=== PATIENT | male | born 1960 | race Caucasian/White ===

== ENCOUNTER 2024-03-12 08:01 | Emergency (ER) | payer BC, SELFPAY ==
[2024-03-12 08:11] VITALS: BP 190/113
[2024-03-12 08:12] VITALS: BP 175/106
[2024-03-12 08:15] VITALS: BP 175/106
[2024-03-12 08:18] VITALS: BMI 30.3
[2024-03-12] MEDS: DECADRON 10 MG IV (08:52)
[2024-03-12] MEDS: NORCO 5/325 2 TABLET PO (08:52)
[2024-03-12 08:59] VITALS: BP 172/108
[2024-03-12 09:00] VITALS: BP 172/108
--- NOTE | 2024-03-12 09:14 | ED.GENMED ---
History of Present Illness
General
Chief Complaint: Back Pain
Source: patient and family
Time Seen by Provider: 03/12/24 08:10
History of Present Illness
History of Present Illness:
63-year-old male with no previous past medical history he does admit that he does not really see his doctor often presents with pain down his right leg. The patient states that he has had this off and on for many years. He has had over the weekend
but today was much worse. He states he could not bend over to put his socks on. 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 He denies numbness or tingling. He denies motor weakness. He denies bladder or bowel dysfunction. He denies
fevers. He denies any specific injury.
Past History
Past History
ED Past Medical History: None
ED Past Surgical History: Orthopedic
Social History
Tobacco: Non-smoker
Alcohol: Daily
Phy Exam
Physical Exam
Physical Exam:
CONSTITUTIONAL Vital signs reviewed, Patient alert and oriented to person, place and time. Well-appearing
HEAD atraumatic, normocephalic.
EYES eyelids normal to inspection, Extraocular muscles intact, Conjunctiva normal, Sclera normal.
NECK normal range of motion, Trachea midline, no jugular venous distention.
RESP no respiratory distress
BACK No obvious deformities
UPPER EXTREMITY Gross Range of motion normal, gross motor strength normal
LOWER EXTREMITY Gross range of motion normal, Gross motor strength normal. Normal distal pulses bilaterally. Positive straight leg raise on the right at about 45 degrees
NEURO Speech normal, No focal motor deficits include, [place] coma scale 15, Memory normal, Cranial Nerves intact to screening exam.
SKIN Skin warm, dry, and normal in color.
PSYCHIATRIC Patient oriented to person place and time, Normal affect.
Course
Orders/Labs/Results
Orders:
Orders
03/12/24 08:35
Dexamethasone Sod Phosphate [Decadron] 10 mg IV NOW STA
Hydrocodone 5/APAP 325 [[place] 5/325] 2 tablet PO NOW STA
03/12/24 08:55
Vital Signs- Treatment ONCE
Frequency: Once
Vital Signs
Initial and Last Documented VS:
Initial Vital Signs
BP Pulse Ox
190/113 99
03/12/24 08:11 03/12/24 08:11
Last Documented Vital Signs
Temp Pulse Resp BP Pulse Ox
98.0 F 68 18 172/108 97
03/12/24 08:59 03/12/24 08:59 03/12/24 08:59 03/12/24 09:00 03/12/24 09:00
MDM/Problems Addressed
MDM/Problems Addressed:
Lumbar radiculopathy, acute uncontrolled hypertension
*Pulse Oximetry
Patient hypoxic: no
*Critical Care Note
Total Time (30-74mins, 75-104mins- exclusive of procedures): Not Applicable
Data Reviewed
Source: patient and family (Patient's son)
Prescriptions/Medications Considered But Not Given:
Considered antihypertensives but patient is in pain and hypertension possibly related
Patient Management
Escalation/DeEscalation of care consider admission/obs:
Patient appears well. No evidence of cauda equina syndrome. Suspect lumbar radiculopathy. Will trial steroids, pain control and outpatient follow-up with spine. Also counseled importance for blood pressure control and importance of follow-up to
repeat his blood pressure.
ED Attending Note
-
Portions of this chart may have been created with voice recognition software.� Occasional wrong word or��sound alike� substitutions may have occurred due to the inherent limitations of voice recognition software.
Discharge Plan
Departure
Patient Disposition: Home (Routine Discharge)
Date of Disposition: 03/12/24
Time of Disposition: 09:46
Patient with high blood pressure during this ER visit?: Yes
Discharge Problem:
Acute lumbar radiculopathy, Uncontrolled hypertension
Instructions: Sciatica (DC), Radiculopathy (DC), BLOOD PRESSURE
Prescriptions:
New
prednisone 10 mg Tablet
See Rx Instructions .ROUTE .COMPLEX Qty: 45 0RF
Rx Instructions:
Take By Mouth:
50 mg daily x3 days, 40 mg daily x3 days,
30 mg daily x3 days, 20 mg daily x3 days,
10 mg daily x3 days
hydrocodone-acetaminophen 5-325 mg tablet
2 tab PO Q6H PRN (Reason: Pain) Qty: 15 0RF
Referrals:
Ja Silver MD [Active] -
Baljeet Long MD [Family Provider] -
Activity Restrictions/Additional Instructions:
Please see your doctor in the next 3 days for follow-up and re-evaluation.
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 Further workup should include an MRI. Return immediately for numbness, motor weakness, bowel or bladder incontinence or any other concerns
Your blood pressure was elevated while in the Emergency Department, please have your doctor re-evaluate it in the next 48 hours as untreated hypertension may lead to serious complications.
Interventions
Interventions:
*Risk Screen - Suicide Last Done: 03/12/24 08:32
*General Assessment Last Done: 03/12/24 08:31
*ED COVID-19 Vaccine History Last Done: 03/12/24 08:30
ED-Musculoskeletal Assessment Last Done: 03/12/24 09:02
Discharge Date and Time
Print Language: ARABIC
[2024-03-12 10:30] VITALS: BP 172/108
== END 2024-03-12 10:30 | disposition home or self-care (01) ==
LOC: EMR 08:01
PROVIDERS: EMERGENCY PHYSICIAN Emergency Medicine; FAMILY PHYSICIAN Family Medicine
DX: M54.16 Radiculopathy, lumbar region (principal); I10 Essential (primary) hypertension
CPT/HCPCS: 96374; 99284